=== PATIENT | female | born 1960 | race Caucasian/White ===

== ENCOUNTER 2017-03-13 18:20 | Inpatient (IN) | payer MEDICAID, OTHER ==
[2017-03-13 19:10] LABS: ADD MAN DIFF? NO
[2017-03-13 19:15] LABS: WHITE BLOOD COUNT 15.3 10^3/ul (4.8-10.8)
[2017-03-13 19:15] LABS: ABNORMAL IP MESSAGE 1; BASOPHIL # 0.1 10^3/ul (0.0-0.1); BASOPHILS % 0.4 % (0.0-2.0); EOSINOPHILS % 0.1 % (0.0-7.0); HEMATOCRIT 41.3 % (37.0-47.0); HEMOGLOBIN 11.9 g/dl (12.0-16.0); LYMPHOCYTES # 0.8 10^3/ul (0.8-2.9); LYMPHOCYTES % 5.3 % (15.0-51.0); MEAN CORPUSCULAR HEMOGLOBIN 27.6 pg (29.0-33.0); MEAN CORPUSCULAR HGB CONC 28.8 g/dl (32.0-37.0); MEAN CORPUSCULAR VOLUME 95.8 fl (82.0-101.0); MEAN PLATELET VOLUME 10.5 fl (7.4-10.4); MONOCYTE # 0.7 10^3/ul (0.3-0.9); MONOCYTES % 4.8 % (0.0-11.0); NEUTROPHIL # 13.7 10^3/ul (1.6-7.5); NEUTROPHILS % 89.1 % (39.0-77.0); PLATELET COUNT 277 10^3/UL (140-415); RED BLOOD COUNT 4.31 10^6/ul (4.20-5.40); RED CELL DISTRIBUTION WIDTH 13.6 % (11.5-14.5)
[2017-03-13] MEDS: CEFEPIME 2GM/50 ML (PMX) 50 ML IVPB (19:18)
[2017-03-13] MEDS: SODIUM CHLORIDE 0.9% 1L BAG IV* ×2 (19:18→19:29)
[2017-03-13] MEDS: ONDANSETRON 4 MG INJ IV (19:18)
[2017-03-13] MEDS: VANCOMYCIN 1 GM (PMX) 250 ML IVPB (19:18)
[2017-03-13] MEDS: morphine 4 MG/ML VIAL IV (19:20)
[2017-03-13 19:26] LABS: POSITIVE DIFF @See below
[2017-03-13 19:35] LABS: ALANINE AMINOTRANSFERASE 41 IU/L (13-69); ALBUMIN 3.8 g/dl (3.3-4.9); ALBUMIN/GLOBULIN RATIO 0.77; ALKALINE PHOSPHATASE 104 IU/L (42-121); AMYLASE 55 U/L (11-123); ASPARTATE AMINO TRANSFERASE 63 IU/L (15-46); BILIRUBIN,INDIRECT 0.3 mg/dl (0-1.1); BILIRUBIN,TOTAL 0.3 mg/dl (0.2-1.3); BLOOD UREA NITROGEN 26 mg/dl (7-20); CALCIUM 8.7 mg/dl (8.4-10.2); CHLORIDE 88 mmol/L (97-110); CREATININE 0.75 mg/dl (0.44-1.00); GLUCOSE 195 mg/dl (70-220); LIPASE 13 U/L (23-300); SODIUM 146 mmol/L (135-144); TOTAL PROTEIN 8.7 g/dl (6.1-8.1)
[2017-03-13 19:36] LABS: LACTIC ACID 1.7 mmol/L (0.5-2.0)
[2017-03-13 19:45] LABS: CREATINE KINASE < 20 IU/L (23-200)
[2017-03-13 19:46] LABS: ANION GAP 13 (8-16)
[2017-03-13 19:47] LABS: B-TYPE NATRIURETIC PEPTIDE 2070 PG/ML (0-125); CK-MB 0.69 ng/ml (0.0-2.4)
[2017-03-13 19:48] LABS: CARBON DIOXIDE 50 mmol/L (21-31)
[2017-03-13] MEDS: LORAZEPAM 2 MG INJ IV (22:12)
[2017-03-13] MEDS ORDERED: ONDANSETRON 4 MG INJ IV (22:30)
[2017-03-13] MEDS ORDERED: ACETAMINOPHEN 325 MG TAB PO (22:30)
[2017-03-14] MEDS ORDERED: NACL 0.9% 3 ML SYG IV (01:30)
[2017-03-14] MEDS ORDERED: VANCOMYCIN IV PER PHARMACY XX (01:30)
[2017-03-14] MEDS ORDERED: ACETAMINOPHEN 650 MG SUPP PR (01:30)
[2017-03-14] MEDS ORDERED: ONDANSETRON 4 MG INJ IV (01:30)
[2017-03-14] MEDS: SOD CHLORIDE 0.9% 1,000 ML IV (02:22)
[2017-03-14] MEDS: PIPER-TAZO 3.375 GM IV (PMX) 100 ML IVPB ×2 (02:45→06:35)
[2017-03-14] MEDS: VANCOMYCIN 1 GM 250 ML IVPB (03:30)
[2017-03-14 03:45] LABS: LACTIC ACID 1.7 mmol/L (0.5-2.0)
[2017-03-14 07:03] LABS: LACTIC ACID 2.3 mmol/L (0.5-2.0)
[2017-03-14] MEDS ORDERED: ALBUTEROL/IPRATROPIUM (NEB) 3 ML AMP HHN (09:00)
[2017-03-14] MEDS: ONDANSETRON 4 MG INJ IV (10:01)
[2017-03-14] MEDS: morphine 4 MG/ML VIAL IV (10:01)
== END 2017-03-14 09:57 | disposition expired | DRG 193 ==
LOC: MS1 22:19 → E/R 03-14 12:30
DX: J18.9 Pneumonia, unspecified organism (principal); G93.40 Encephalopathy, unspecified; C79.9 Secondary malignant neoplasm of unspecified site; J84.10 Pulmonary fibrosis, unspecified; C34.90 Malignant neoplasm of unspecified part of unspecified bronchus or lung; R47.01 Aphasia; E11.9 Type 2 diabetes mellitus without complications; Z51.5 Encounter for palliative care; Z87.891 Personal history of nicotine dependence; Z66 Do not resuscitate
CPT/HCPCS: 71045; 80053; 82150; 82550; 82553; 83605; 83690; 83880; 84484; 85025; 86850; 86900; 86901; 87040; 93005; 96365; 96375; 96376; 99291-25